=== PATIENT | male | born 1955 | race Caucasian/White ===

== ENCOUNTER → 2017-11-26 | Day surgery (SDC) | payer OTHER ==
[2017-11-26] MEDS: SOD CHLORIDE 0.9% 1,000 ML IV (10:30)
[2017-11-26] MEDS: PROPOFOL 40 ML (10:56)
[2017-11-26] MEDS: LIDOCAINE 2% (SDV) 5 ML INJ (10:56)
[2017-11-26] MEDS: MIDAZOLAM 1 MG/ML 2 ML INJ (11:00)
[2017-11-26] MEDS: PROPOFOL 20 ML (11:00)
[2017-11-26] MEDS: FENTAnyl 50 MCG/ML VIAL (11:00)
[2017-11-26] MEDS: LIDOCAINE 1% (MDV) 10 ML INJ (11:25)
== END | disposition home or self-care (01) ==
LOC: RAD 09:02 → SDS 09:02
DX: D47.2 Monoclonal gammopathy (principal); I10 Essential (primary) hypertension; E78.5 Hyperlipidemia, unspecified; R73.03 Prediabetes; Z86.73 Personal history of transient ischemic attack (TIA), and cerebral infarction without residual deficits
CPT/HCPCS: 38221; 77012; 88305; 88313; 88342